=== PATIENT | female | born 1995 | race Caucasian/White ===

== ENCOUNTER 2021-12-17 15:18 | Emergency (ER) | payer SELFPAY ==
[~2021-12-17] VITALS: Ht 160 cm; Wt 68.0 kg
[2021-12-17 15:23] VITALS: BP 120/81
--- NOTE | 2021-12-17 15:45 | NUR ---
PT AMBULATED TO BED
--- NOTE | 2021-12-17 15:59 | NUR ---
26 y/o female, c/o abd pain radiates to chest, n&v with bloody emesis and bloody stool. denies dysuria and hematuria. 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 PT SAID SHE HAS HAD THIS FOR 10 DAYS AND MADE AN APPOINTMENT AT A CLINIC THAT REFERED HER TO THE ER. PT STATES PAIN IS A 10/10 IN UPPER ABDOMINAL THAT RADIATES UP TO HER CHEST. SHE ALSO SAID SHE FEELS "PAIN IN HER HEART". PT ALSO STATED SHE HAS NAUSEA BUT NO VOMITING. SHE STATED THAT SHE HAS BLOOD IN HER DIAHRREA. SHE ALSO STATED THAT HER PERIOD IS LATE BUT SHE THINKS SHE IS STARTING IT. PT RESTING IN BED. PMH: HTN med: HTN medication from [facility]
--- NOTE | 2021-12-17 16:10 | NUR ---
DR. JASSO AT BEDSIDE. 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
--- NOTE | 2021-12-17 16:37 | NUR ---
PT WALKED TO BATHROOM WITH STEADY GAIT
--- NOTE | 2021-12-17 16:55 | NUR ---
Rectal exam performed per [] with [] at bedside during procedure. Patient tolerated well.
[2021-12-17] MEDS ORDERED: CIPR500T4 PO (16:58)
[2021-12-17] MEDS ORDERED: FAMO-90 PO (16:58)
[2021-12-17 17:09] VITALS: BP 120/81
--- NOTE | 2021-12-17 17:09 | NUR ---
Patient discharged with v/s stable. Written and verbal after care instructions given and explained. Patient alert, oriented and verbalized understanding of instructions. Ambulatory with steady gait. All questions addressed prior to discharge. ID band removed. Patient advised to follow up with PMD. Rx of FAMOTIDINE, CIPRO given. Patient educated on indication of medication including possible reaction and side effects. Opportunity to ask questions provided and answered.
== END 2021-12-17 17:09 | disposition home or self-care (01) ==
LOC: MED 15:18
DX: K92.1 Melena (principal); K21.9 Gastro-esophageal reflux disease without esophagitis; R19.7 Diarrhea, unspecified; K60.2 Anal fissure, unspecified; I10 Essential (primary) hypertension; Z79.899 Other long term (current) drug therapy; Z79.2 Long term (current) use of antibiotics
CPT/HCPCS: 81002; 81025; 99283